=== PATIENT | female | born 1950 | race Caucasian/White ===

== ENCOUNTER 2018-01-05 14:12 | Day surgery (SDC) | payer MEDICARE, OTHER ==
[2018-01-05] MEDS ORDERED: PROPOFOL 40 ML (16:11)
[2018-01-05] MEDS ORDERED: LIDOCAINE 2% (SDV) 5 ML INJ (16:11)
== END 2018-01-05 17:19 | disposition home or self-care (01) ==
LOC: GIL 14:12
DX: D50.9 Iron deficiency anemia, unspecified (principal); K63.89 Other specified diseases of intestine; K64.8 Other hemorrhoids; K29.60 Other gastritis without bleeding; I10 Essential (primary) hypertension; E11.9 Type 2 diabetes mellitus without complications; E78.5 Hyperlipidemia, unspecified
CPT/HCPCS: 43239; 82962; 88305; 88312

== ENCOUNTER 2019-05-04 07:16 | Day surgery (SDC) | payer MEDICARE, OTHER ==
[2019-05-04 08:26] LABS: ADD MAN DIFF? NO
[2019-05-04 08:27] LABS: ABNORMAL IP MESSAGE 1; BASOPHILS % 0.4 % (0.0-2.0); EOSINOPHILS # 0.1 10^3/ul (0.0-0.5); EOSINOPHILS % 3.4 % (0.0-7.0); HEMATOCRIT 36.5 % (37.0-47.0); HEMOGLOBIN 12.2 g/dl (12.0-16.0); LYMPHOCYTES # 0.7 10^3/ul (0.8-2.9); LYMPHOCYTES % 26.4 % (15.0-51.0); MEAN CORPUSCULAR HEMOGLOBIN 33.9 pg (29.0-33.0); MEAN CORPUSCULAR HGB CONC 33.4 g/dl (32.0-37.0); MEAN CORPUSCULAR VOLUME 101.4 fl (82.0-101.0); MEAN PLATELET VOLUME 12.1 fl (7.4-10.4); MONOCYTE # 0.2 10^3/ul (0.3-0.9); MONOCYTES % 7.7 % (0.0-11.0); NEUTROPHIL # 1.6 10^3/ul (1.6-7.5); NEUTROPHILS % 62.1 % (39.0-77.0); PLATELET COUNT 58 10^3/UL (140-415); RED CELL DISTRIBUTION WIDTH 12.2 % (11.5-14.5)
[2019-05-04 08:27] LABS: WHITE BLOOD COUNT 2.6 10^3/ul (4.8-10.8)
[2019-05-04 09:00] LABS: HOLD TRANSMISSIONS 1; POSITIVE DIFF @See below
[2019-05-04] MEDS: LEVETIRACETAM 250 MG TAB PO (09:17)
== END 2019-05-04 09:49 | disposition home or self-care (01) ==
LOC: SDS 07:16
DX: M23.204 Derangement of unspecified medial meniscus due to old tear or injury, left knee (principal); Z53.8 Procedure and treatment not carried out for other reasons; E11.9 Type 2 diabetes mellitus without complications; I10 Essential (primary) hypertension; G40.909 Epilepsy, unspecified, not intractable, without status epilepticus
CPT/HCPCS: 82962; 85025; 86850; 86900; 86901

== ENCOUNTER → 2019-05-07 | Outpatient (CLI) | payer MEDICARE, OTHER ==
[2019-05-07] MEDS: BARIUM SULF 2% 450 ML BTL (BERRY SMOOTHIE) PO ×2 (12:45→13:52)
== END | disposition home or self-care (01) ==
LOC: C/S 12:05
DX: D69.6 Thrombocytopenia, unspecified (principal)
CPT/HCPCS: 74176